=== PATIENT | female | born 1965 | race Caucasian/White ===

== ENCOUNTER → 2019-07-24 | Outpatient (CLI) | payer OTHER ==
[~2019-07-24] MED LIST: ACET500 PO; ALPR.25; ALPR.25 PO; ALPR.5 PO; ALPR1 PO; AMIT50 PO; Ambien5 MG PO; Amoxicillin500 MG PO; BUSP15 PO; Bactrim Ds Tab1 EACH PO; CEPH250A; CEPH500 PO; CHLO25 PO; CLON.1 PO; CLON.5 PO; CRUTCH4 USE; CYCL10 PO; Ceftriaxone2 G1 IV; Cyclobenzaprine5 MG PO; Cymbalta20 MG PO; DICY20 PO; DOCU100 PO; DULO30 PO; DULO60 PO; ERYT1OIN BOTHEYES; ESOM20 PO; FAMO20 PO; FOLI1 PO; GABA600 PO; GUAI600T33 PO; HYDACE10B; HYDACE5 PO; HYDHCL25 PO; HYDPAM50 PO; HYDR1TAB94 PO; IBUP600 PO; IBUP800; Keflex500 MG PO; LAMO25 PO; LANS30EC PO; LAVAP17G PO; LOPE2C PO; LORA.5 PO; METCAR750 PO; MIRT15 PO; MULTI VITAMIN1 EACH PO; MULVITMIND PO; Micro-K10 MEQ PO; Monodox100 MG PO; NICO14TP TOP; NICO21TP TD; NICO21TP TOP; OMEP40CA12 PO; ONDA8 PO; OXYACE5T PO; OXYC10TA19 PO; OXYC5; OXYC5 PO; OXYCODONE; PANT40 PO; POTCHL20ER PO; PROM25 PO; PROM25S PR; Percocet 5-3251 EACH PO; Prednisone10 MG PO; QUET200 PO; RIFA300 PO; RXHYDACE PO; SYMBYAX PO; Seroquel200 MG PO; THIA100 PO; TRAM50 PO; TRAZ50 PO; Ultram50 MG PO; VICODIN; Ventolin/Prove6.7 GM INH
[2019-07-25 14:22] LABS: Stool Occult Bld Immuno 1 Negative (NEGATIVE)
== END | disposition home or self-care (01) ==
LOC: LAB 09:02 → LAB SHORT 09:02 → LAB FUT 05-05 16:00
PROVIDERS: Nurse Practitioner Family
DX: Z12.11 Encounter for screening for malignant neoplasm of colon (principal)
CPT/HCPCS: G0328